=== PATIENT | female | born 1960 | race Caucasian/White ===

== ENCOUNTER 2019-07-20 14:29 | Emergency (ER) | payer OTHER, SELFPAY ==
[2019-07-20 14:37] VITALS: BP 132/81; PULSE 94; RESP 18; TEMP 37; O2SAT 98
--- NOTE | 2019-07-20 15:19 | W.ED.GENAD ---
Discharge Plan Disposition Patient Disposition: HOME Discharge Details Chief Complaint: Nk/Back Pain Clinical Impression: Acute lumbar myofascial strain ED Provider: Robbin Rodriguez Home Meds and New Rx's Prescriptions: New prednisone 20 mg tablet 40 mg PO ONCE 5 Days Qty: 10 RF: 0 No Action methylphenidate HCl [Ritalin] 20 mg Tablet RF: 0 alprazolam [Xanax] 0.5 mg Tablet RF: 0 fluoxetine 20 mg Capsule 20 mg RF: 0 Discharge Instructions Instructions: Muscle Strain (ED) Additional Instructions: His exam is consistent with a acute lower back strain. Back strains may related to muscles and or the intervertebral discs of your spine. As of now you have no concerning features that suggest a emergent intervention and/or imaging. However, if you develop severe worsening back pain, numbness or tingling in both legs, loss of control of your bladder or bowels he must return to the emergency department immediately. Take Tylenol and Motrin for pain. Avoid heavy lifting until symptoms subside. Follow-up with your doctor back home should your symptoms persist. Stand Alone Forms: Work Release Referrals: Robbin Rodriguez PA [Emergency Provider] - Return if symptoms worsen Medical Decision Making This is a nontoxic-appearing 59-year-old female status post lumbar back strain while lifting heavy television. She does have some mild paraspinal and midline tenderness along the lumbar region. Neuro exam intact. No saddle paresthesias. No urinary/bowel incontinence/retention. I do not suspect cauda equina at this time. We discussed supportive measures going forward along with a short course of prednisone to help relieve symptoms of radiculopathy into the right buttock. She is scheduled to return home this Tuesday for which I have urged her to stay and rest for the next 5 days. She will follow-up with her primary care physician should her symptoms persist. We did discuss in detail return precautions. HPI General Date/Time Provider Initiated Documentation: 07/20/19 14:38. HPI Narrative: Patient is a 59-year-old female presenting to the emergency department for acute lower back pain status post lifting. Patient states that she was lifting a large television when she suddenly felt a pop in her lower back. She has localized back pain since the injury. She does state that she has some radiation into her right buttock. No numbness or tingling in her legs. No urinary or bowel incontinence/retention. She denies any saddle paresthesias. She has not taken anything for the pain. She has been able to ambulate albeit it with a walker. Related Data Home Medications Medication Instructions Recorded Confirmed alprazolam [Xanax] 07/20/19 fluoxetine 20 mg 07/20/19 methylphenidate HCl [Ritalin] 07/20/19 prednisone 40 mg PO ONCE 5 Days #10 tab 07/20/19 Previous Rx's Medication Instructions Recorded prednisone 40 mg PO ONCE 5 Days #10 tab 07/20/19 Allergies Allergy/AdvReac Type Severity Reaction Status Date / Time No Known Allergies Allergy Unverified 07/20/19 14:40 General Stated Complaint: Nk/Back Pain JOEL: 3 Review of Systems Gastrointestinal Denies abdominal pain, Denies diarrhea, Denies nausea and Denies vomiting Genitourinary Denies urinary frequency, Denies urinary incontinence and Denies urinary urgency Musculoskeletal Reports back pain, Reports limited range of motion, Denies numbness, Denies radiating pain into limb and Denies tingling Neurologic Denies burning sensations, Denies numbness and Denies tingling [facility] Social History Smoking/Tobacco Use Status: Never Alcohol Intake: current Alcohol Intake frequency: a few times a month Drug use: Never Do you feel safe at home: Yes Do you feel safe in your relationship?: Yes Exam Const General: cooperative Orientation: alert, awake and oriented x3 Neck Neck: normal visual inspection and full ROM Chest Chest: normal inspection of the chest Resp Effort & Inspection: normal respiratory effort Back/Spine/Pelvis Back: no CVA tenderness Cervical Spine: normal cervical lordosis Thoracic/Lumbar Spine: pain with thoraco-lumbar ROM, paraspinal tenderness, thoraco-lumbar ROM limited, lumbar spinal tenderness and straight leg raise positive (right sided) Skin General skin exam: no rashes or lesions noted Neuro Motor: muscle tone normal throughout Sensory Exam: no sensory deficits noted Course Vital Signs Temperature 37.0 C 07/20/19 14:37 Pulse 94 H 07/20/19 14:37 Respiratory Rate 18 07/20/19 14:37 Blood Pressure 132/81 07/20/19 14:37 Pulse Oximetry 98 07/20/19 14:37 Temperature 37.0 C 07/20/19 14:37 Temperature Source Tympanic 07/20/19 14:37 Pulse 94 H 07/20/19 14:37 Respiratory Rate 18 07/20/19 14:37 Respiratory Effort Non-Labored 07/20/19 14:42 Blood Pressure 132/81 07/20/19 14:37 Blood Pressure Position Sitting 07/20/19 14:37 Pulse Oximetry 98 07/20/19 14:37 Oxygen Delivery Method Room Air 07/20/19 14:37 Oxygen Flow Rate 0 07/20/19 14:37 Pain Level 8 07/20/19 14:44 Comment 07/20/19 14:37
== END 2019-07-20 15:39 | disposition home or self-care (01) ==
LOC: ER 16:01
PROVIDERS: Emergency Provider Physician Assistant
DX: S39.012A Strain of muscle, fascia and tendon of lower back, initial encounter (principal); X50.0XXA Overexertion from strenuous movement or load, initial encounter
CPT/HCPCS: 99283